=== PATIENT | female | born 1965 | race Caucasian/White ===

== ENCOUNTER 2018-08-26 13:09 | Inpatient (IN) ==
--- NOTE | 2018-08-25 20:28 | MH ---
cc: Bacilio Peoples MD DATE OF ADMISSION: 08/26/2018 HISTORY OF PRESENT ILLNESS: The patient is a 53-year-old white female, para 2-0-7-2 who was referred by her family doctor for evaluation. She was having treatment for a respiratory infection and a ventral hernia in 02/[address] scan on 03/13/2018 showed an enlarged uterus. She has had pelvic pain and pressure. Her previous bleeding was in 10/2017. Her vaginal ultrasound on 07/17/2018 showed uterus that measured 9.5 cm with a solid mass in the central region measuring 4.8 x 5.6 x 7.1 cm. Right ovary was normal, a small cyst; left could not be seen. There is no free fluid. MRI on 07/28/2018 confirmed these findings with a simple cyst on the right ovary. Hysterectomy was recommended. She presented for preop on 08/24/2018 and reported onset of menstrual type bleeding in the last few days. She is now admitted for surgery. PAST MEDICAL HISTORY: Previous surgeries, none. MEDICATIONS: Include: 1. Metformin. 2. Lipitor. 3. Albuterol. 4. Singulair. ALLERGIES: PENICILLIN. TRANSFUSIONS: None. SYSTEMIC ILLNESSES: Adult onset diabetes, diet controlled. OBSTETRIC HISTORY: Two vaginal deliveries. SOCIAL HISTORY: She is a homemaker, . Alcohol, tobacco and drugs are none. FAMILY HISTORY: Noncontributory. She is adopted. REVIEW OF SYSTEMS: Negative. PHYSICAL EXAMINATION: GENERAL: This is a well-nourished, well-developed white female. VITAL SIGNS: Stable. HEENT: Normal. CHEST: Clear. HEART: Regular rate. BREASTS: Symmetrical. ABDOMEN: Benign. PELVIC: Vagina is normal. Cervix normal. Uterus is enlarged, about 14-week size. Adnexa nonpalpable. IMPRESSION: As above, she is now admitted for D and C with frozen section with a planned laparoscopy, LASH BSO, possible TANYA/BSO. While in the office, the risk and benefits and complications were explained and accepted. Different types incision explained and accepted. Her followup chest x-ray shows a left lower lobe airspace consolidation, which appears to be unchanged from her chest x-ray and CT scans that were done on 02/26/2018 and 03/13/2018. MD TRAVON Carr/mook/ , 07:53 PM , 08:00 PM [email or web address]
[2018-08-26] MEDS ORDERED: Sodium Chlor 0.9% Inj 500 ML IV.CONT PRN (14:00)
[2018-08-26] MEDS ORDERED: Chlorhexidine Gluconate 2% 1 Pack (2 Cloths) TOPICAL SCH (14:15)
[2018-08-26] MEDS ORDERED: Metoprolol Tartrate 25 MG Tablet PO SCH (14:15)
[2018-08-26] MEDS ORDERED: Sugammadex Inj 200 MG/2 ML Vial IV.PUSH ONE (17:11)
[2018-08-26] MEDS ORDERED: Zolpidem Tartrate 5 MG Tablet PO PRN ×2 (18:59→19:13)
[2018-08-26] MEDS ORDERED: Naloxone Inj 0.4 MG/ML Vial IV.PUSH PRN (19:02)
[2018-08-26] MEDS ORDERED: Lidocaine PF 1% Inj 5 ML Vial ONE (19:03)
[2018-08-26] MEDS ORDERED: Bupivacaine Liposomal PF 1.3% Inj 20 ML Vial ONE (19:03)
[2018-08-26] MEDS ORDERED: Morphine Inj 4 MG/ML Vial ONE (19:09)
[2018-08-26] MEDS ORDERED: fentaNYL Citrate Inj 100 MCG/2 ML Ampul ONE (19:11)
--- NOTE | 2018-08-26 19:48 | XR ---
EXAM DATE: 08/26/2018 7:43 PM EST AGE/SEX: 53 years / Female INDICATIONS: Instrument count; total abdominal hysterectomy. Evaluate for possible retained surgical needle. CLINICAL DATA: This is the patient's initial encounter. Patient reports that signs and symptoms have been present for 1 day and indicates a pain score of Nonresponsive. MEDICAL/SURGICAL HISTORY: Non-responsive. Non-responsive. COMPARISON: No prior exams available for comparison. FINDINGS: Multiple views of the abdomen and pelvis were obtained and demonstrate an unremarkable bowel gas pat tern. A nasogastric tube is present with the tip in the proximal stomach. No metallic needle is ident ified. There is mild film artifact along the left side of the abdomen. The bony structures are intact . CONCLUSION: No metallic needle identified. Electronically signed by: Ag Oquendo MD 08/26/2018 7:46 PM EST
[2018-08-26] MEDS: Morphine Inj 30 MG/30 ML PCA.VIAL PCA PRN (19:59)
[2018-08-26] MEDS ORDERED: *morphine SULFATE 4 MG/ML PERIprocedure ONLY ONE (20:32)
[2018-08-26] MEDS ORDERED: *Meperidine Inj 25 MG/ML Vial PERIprocedural Use ONLY ONE (20:35)
[2018-08-26 20:43] LABS: Hematocrit 37.4 % (35.0-46.0); Hemoglobin 12.4 gm/dL (11.6-15.3); Mean Corpuscular HGB Conc 33.1 % (32.0-36.0); Mean Corpuscular Hemoglobin 28.6 pg (27.0-34.0); Mean Corpuscular Volume 86.4 fL (80.0-100.0); Mean Platelet Volume 7.4 fL (7.0-11.0); Platelet Count 204 th/mm3 (150-450); Red Blood Count 4.32 mil/mm3 (4.00-5.30); Red Cell Distribution Width 13.3 % (11.6-17.2); White Blood Count 11.1 th/mm3 (4.0-11.0)
[2018-08-26] MEDS: Ketorolac Inj 30 MG/ML (IVP) Vial IV.PUSH SCH (21:13)
[2018-08-26] MEDS: Docusate Sodium 100 MG Capsule PO SCH (23:02)
--- NOTE | 2018-08-27 00:08 | MP ---
cc: Bacilio Peoples MD DATE OF OPERATION: 08/26/2018 DATE OF SURGERY: 08/26/2018. PREOPERATIVE DIAGNOSES: 1. Pelvic pain. 2. Uterine fibroid. 3. Postmenopausal bleeding. POSTOPERATIVE DIAGNOSES: 1. Pelvic pain. 2. Uterine fibroid. 3. Postmenopausal bleeding. PROCEDURE PERFORMED: Dilatation and curettage, frozen section, laparoscopy, followed by laparotomy with a TANYA and BSO. ANESTHESIA: General, ET. SURGEON: Bacilio Peoples MD CARBURIZER: Avery Redmond ESTIMATED BLOOD LOSS: About 300 mL FLUIDS: One liter Crystalloid. OBJECTIVE FINDINGS: Following induction of adequate general endotracheal anesthesia, the patient was prepped and draped supine on the operating table in dorsal lithotomy position in usual sterile fashion, with the bladder being drained with Torres catheterization. Exam under anesthesia reveals about a 14 week size uterus. Heavy weighted speculum was placed in the posterior vagina. Anterior lip of the cervix was grasped with toothed tenaculum. Uterus sounded to 10 cm and dilated to #18 Hanks dilator. Endocervical curettings sent for permanent study, endometrium for frozen. Tenaculum site sutured with 3-0 Monocryl. Bung Remover's gloves were changed. The abdomen was opened through a 3 cm curving infraumbilical incision using the knife to cut down through the skin and the fascia. The fascia opened transversely. Peritoneum opened bluntly and the gel port inserted. With the laparoscope in place, the 5 port was placed in left lower quadrant and air sealed the right lower quadrant. It was about 14-week size, symmetrically enlarged, filling the pelvis. Tubes were normal. There were some adhesions of the right ovary to the posterior cul-de-sac. The frozen section returned benign. The Harmonic scalpel was used to take the left ovarian vessels, left mesosalpinx, left round ligament and left-sided bladder flap. On the right side, the right uretero-ovarian pedicle was taken in this fashion as was the right broad ligament. At this point, the adhesions between the posterior uterus and the ovary and the limited visibility made it clear that the laparotomy was needed. The scope was now withdrawn. The gel port removed, small ports removed and the abdomen was opened through a Pfannenstiel incision using knife to cut down through the skin to the fascia. The fascia opened transversely, stripped from the muscles, rectus muscle split in the midline and an elastic protractor placed. The bowels were packed off the field with moist laps and large Shavon clamps were placed in each cornua for traction. This allowed for further dissection of the bladder flap distally and Ebonie clamps were used to take the right uterine vessels x3, cut and ligated x2 same on the left. Straight Madelyn clamp was now used to take the cardinals and uterosacrals in succession clamping, cutting and ligating with 0-vicryl . When the level was just above the cervix, the anterior vaginal wall was pierced with a knife and the cervix excised at the cuff with the Bovie. Each corner of the vaginal cuff was then closed and suspended to the respective uterosacral ligament. A modified Newsome using 0 Vicryl and remainder of the cuff was closed with a running locking stitch of 0 Vicryl. The Harmonic scalpel was now used to take the right ovarian vessels and the right mesosalpinx and this was also sent for permanent study. Irrigation performed. No bleeding was evident. Ureters were inspected for good peristalsis on each side. The pelvis was packed with clean lap. There was no bleeding after 3 minutes and the operative sites were coated with Evicel. All retractors were removed. Lap counts were correct. Instrument counts were correct and the peritoneum was closed with running 2-0 Vicryl. The fascia from the umbilical incision was closed with a running stitch of #1 Vicryl running. The muscles were dusted with Megha and the fascia closed with a running stitch of #1 PDS corner midline and tied, subcutaneous irrigated and closed with a running 3-0 Vicryl, the skin with a running subcuticular 3-0 Monocryl, subcutaneous at the umbilical site was now closed with a running 3-0 Vicryl and the skin with a running 3-0 Monocryl subcuticular. Dermabond applied. Because of a questionable needle count problem, incorrect, x-ray will be obtained and checked to ensure there was no intra-abdominal needle. MD TRAVON Carr/tung , 07:18 PM , 07:28 PM RINKU
[2018-08-27] MEDS: Ketorolac Inj 30 MG/ML (IVP) Vial IV.PUSH SCH ×4 (02:42→21:18)
[2018-08-27 05:46] LABS: Baso % (Auto) 0.1 % (0.0-2.0); Eos % (Auto) 0.2 % (0.0-4.0); Hematocrit 34.6 % (35.0-46.0); Hemoglobin 11.9 gm/dL (11.6-15.3); Lymph # (Auto) 1.6 th/mm3 (1.0-4.8); Lymph % (Auto) 19.1 % (9.0-44.0); Mean Corpuscular HGB Conc 34.3 % (32.0-36.0); Mean Corpuscular Hemoglobin 29.5 pg (27.0-34.0); Mean Corpuscular Volume 86.2 fL (80.0-100.0); Mean Platelet Volume 7.3 fL (7.0-11.0); Mono # (Auto) 0.5 th/mm3 (0.0-0.9); Mono % (Auto) 5.8 % (0.0-8.0); Neut # (Auto) 6.2 th/mm3 (1.8-7.7); Neut % (Auto) 74.8 % (16.0-70.0); Platelet Count 180 th/mm3 (150-450); Red Blood Count 4.02 mil/mm3 (4.00-5.30); Red Cell Distribution Width 13.6 % (11.6-17.2); White Blood Count 8.3 th/mm3 (4.0-11.0)
[2018-08-27 06:12] LABS: Anion Gap 6 meq/L (5-15); Blood Urea Nitrogen 7 mg/dL (7-18); Calcium 7.8 mg/dL (8.5-10.1); Carbon Dioxide 26.2 meq/L (21.0-32.0); Chloride 105 meq/L (98-107); Glomerular Filtration Rate Greater Than 89 mL/min (>89); Glucose,Random 118 mg/dL (74-106); Potassium 3.8 meq/L (3.5-5.1); Sodium 137 meq/L (136-145)
[2018-08-27] MEDS: Docusate Sodium 100 MG Capsule PO SCH ×2 (08:46→21:17)
[2018-08-27] MEDS: Morphine Inj 30 MG/30 ML PCA.VIAL PCA PRN (15:53)
[2018-08-27] MEDS: Montelukast 10 MG Tablet PO SCH (18:34)
[2018-08-28] MEDS: Ketorolac Inj 30 MG/ML (IVP) Vial IV.PUSH SCH ×4 (03:33→23:08)
--- NOTE | 2018-08-28 08:03 | P.PNOB ---
Assessment and Plan - Postoperative POD # 2 s/p TANYA/BSO failed laparoscopic surgery doing well 1. advance diet 2. 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 encourage ambulationProcedures Operation Date: 08/26/18 16:27 Actual Procedures Side Surgeon p ATTEMPTED LAPAROSCOPIC ASSISTED SUPRACERVICAL HYSTERECTOMY Bacilio Peoples MD s TOTAL ABDOMINAL HYSTERECTOMY, BILATERAL SALPINGO OOPHERECTOMY, D&C WITH FROZEN SECTION Bilateral Bacilio Peoples MD Postoperative day: 2 (Doing well, progressing nicely) - Time Spent With Patient Total time spent is greater than 50% in coordination of care (as documented) at patient's floor/unit and/or counseling patient: Subjective Interval history: POD # 2 s/p TANYA/BSO , failed laparoscopic attempt..pt passing small amount of flatus, ambulating well, slight nausea, no vomitting, good pain control Physical Exam Vital signs: Temp Pulse Resp BP Pulse Ox 98.4 F 86 18 133/78 97 08/28/18 04:00 08/28/18 04:00 08/28/18 04:00 08/28/18 04:00 08/28/18 04:00 - Constitutional no acute distress, obese, cooperative - Routine Respiratory Exam Present: CTA bilaterally - Routine Abdominal Exam Present: soft, normoactive bowel sounds Comments: appropriately tender, slight bruising - Urinary Catheter Management Indwelling Urethral Catheter Cath placed during this visit: yes Urethral indwelling: No Insertion date: 08/26/18 Insertion time: 16:54 Results - Labs CBC & Chem 7: 08/27/18 04:20 08/27/18 04:20 Labs: Laboratory Results - last 24 hr 08/27/18 08:47 POC Glucose 112 H
[2018-08-28] MEDS: Docusate Sodium 100 MG Capsule PO SCH ×2 (08:52→21:40)
[2018-08-28] MEDS: Montelukast 10 MG Tablet PO SCH (17:19)
[2018-08-29] MEDS: Ketorolac Inj 30 MG/ML (IVP) Vial IV.PUSH SCH ×4 (04:29→22:03)
--- NOTE | 2018-08-29 08:49 | P.PNOB ---
Subjective Post op day: 3 Interval history: doing well tolerating pain with percocet. up to bathroom and ambulating Objective Vital Signs/I&O: Vital Signs 08/28/18 12:00 08/28/18 16:00 08/28/18 20:00 Temperature 98.0 F 98.0 F 98.2 F Pulse Rate 76 74 70 Respiratory Rate 18 18 18 Blood Pressure 123/98 H 150/78 H 149/79 H Pulse Oximetry 94 L 08/28/18 23:51 08/29/18 03:35 08/29/18 04:00 Temperature 98.3 F Pulse Rate 76 72 Respiratory Rate 18 16 18 Blood Pressure 142/77 H 154/81 H Pulse Oximetry 97 94 L 08/29/18 05:12 Temperature Pulse Rate Respiratory Rate 16 Blood Pressure Pulse Oximetry Intake & Output 08/28/18 08/29/18 08/29/18 18:59 06:59 18:59 Other: # Voids 1 1 Result Diagrams: 08/27/18 04:20 08/27/18 04:20 Objective Remarks: GENERAL: Well-nourished, well-developed patient. ABDOMEN/GI: Abdomen soft, non-tender, bowel sounds present. Incision: Clean, dry and intact. Fundus: Firm, non-tender at umbilicus. GENITOURINARY: Light to moderate bleeding. EXTREMITIES: No cyanosis or edema, non-tender, without signs of DVT. Medications and IVs: Active Medications Diphenhydramine HCl (Benadryl) 25 mg PO Q6H PRN PRN Reason: ITCHING Docusate Sodium (Colace) 100 mg PO BID [facility] Last Admin: 08/28/18 21:40 Dose: 100 mg Lactated Ringer's (Lr 1000 Ml Inj) 1,000 mls @ 125 mls/hr IV.CONT .Q8H [facility] Last Admin: 08/27/18 23:38 Dose: 125 mls/hr Ketorolac Tromethamine (Toradol Inj) 30 mg IV.PUSH Q6H [facility] Last Admin: 08/29/18 04:29 Dose: 30 mg Metformin HCl (Glucophage) 500 mg PO BID [facility] Last Admin: 08/28/18 21:40 Dose: 500 mg Montelukast Sodium (Singulair) 10 mg PO QPM [facility] Last Admin: 08/28/18 17:19 Dose: 10 mg Naloxone HCl (Narcan Inj) 0.4 mg IV.PUSH PRN PRN PRN Reason: Resp rate < 10 Ondansetron HCl (Zofran Inj) 8 mg IV.SIG Q8H PRN PRN Reason: NAUSEA OR VOMITING Last Admin: 08/29/18 04:29 Dose: 8 mg Oxycodone/Acetaminophen (Percocet 5/325 Mg) 1 tab PO Q4H PRN PRN Reason: PAIN SCALE 1-5 Last Admin: 08/29/18 06:00 Dose: 1 tab Oxycodone/Acetaminophen (Percocet 5/325 Mg) 2 tab PO Q4H PRN PRN Reason: PAIN SCALE 6-10 Promethazine HCl (Phenergan Inj) 25 mg IM Q6H PRN PRN Reason: NAUSEA OR VOMITING Last Admin: 08/27/18 08:54 Dose: 25 mg Sodium Chloride (Ns Flush) 2 ml IV.FLUSH BID [facility] Last Admin: 08/28/18 21:41 Dose: 2 ml Sodium Chloride (Ns Flush) 2 ml IV.FLUSH PRN PRN PRN Reason: FLUSH AFTER USING IV ACCESS Last Admin: 08/28/18 10:40 Dose: 2 ml Zolpidem Tartrate (Ambien) 5 mg PO HS PRN PRN Reason: INSOMNIA Assessment and Plan - Diagnosis (1) Vaginal bleeding Code(s): N93.9 - Abnormal uterine and vaginal bleeding, unspecified Status: Acute
[2018-08-29] MEDS: Docusate Sodium 100 MG Capsule PO SCH ×2 (09:56→21:06)
--- NOTE | 2018-08-29 11:26 | MD ---
cc: Bacilio Gonzalez MD,Bacilio Galloway MD DATE OF DISCHARGE: 08/29/2018 HOSPITAL COURSE: This is a 53-year-old patient of Dr. Bacilio Peoples. She was taken to the operating room where she had dilatation and curettage and then attempted laparoscopic hysterectomy, which was unsuccessful. The patient was opened and underwent a total abdominal hysterectomy and bilateral salpingo-oophorectomy. The patient remained in the hospital for 3 days postop, doing well. On the day of discharge, 08/29/2018, she was ambulating, passing gas, eating a regular diet, tolerating her pain with Percocet. She will be discharged home with a prescription for Percocet 24 tablets. She will resume all of her home medications. She will be on pelvic rest for 6 weeks. She will follow up with Dr. Peoples on 09/10/2018 as scheduled. She is in a stable condition. Regular diet. The patient will call for any difficulties or fever. MD STANISLAW Leroy/mook/ray , 08:57 AM , 09:03 AM
[2018-08-29] MEDS: Montelukast 10 MG Tablet PO SCH (17:12)
[2018-08-30] MEDS: Ketorolac Inj 30 MG/ML (IVP) Vial IV.PUSH SCH ×2 (04:09→09:49)
[2018-08-30 04:16] VITALS: PULSE 76; O2SAT 95
[2018-08-30 08:49] VITALS: BP 153/82; RESP 16; TEMP 97.9
[2018-08-30] MEDS: Docusate Sodium 100 MG Capsule PO SCH (09:48)
--- NOTE | 2018-08-30 11:12 | P.PNOB ---
Subjective Post op day: 1 Interval history: doing well dc home Objective Vital Signs/I&O: Vital Signs 08/29/18 13:57 08/29/18 20:31 08/30/18 00:24 Temperature 98.2 F 97.5 F L 97.7 F Pulse Rate 73 84 72 Respiratory Rate 20 16 18 Blood Pressure 131/84 175/97 H 151/85 H Pulse Oximetry 95 95 97 08/30/18 04:14 08/30/18 07:20 Temperature 97.6 F 97.9 F Pulse Rate 76 76 Respiratory Rate 18 16 Blood Pressure 146/89 H 153/82 H Pulse Oximetry 95 Result Diagrams: 08/27/18 04:20 08/27/18 04:20 Objective Remarks: GENERAL: Well-nourished, well-developed patient. ABDOMEN/GI: Abdomen soft, non-tender, bowel sounds present. Incision: Clean, dry and intact. Fundus: Firm, non-tender at umbilicus. GENITOURINARY: Light to moderate bleeding. EXTREMITIES: No cyanosis or edema, non-tender, without signs of DVT. Medications and IVs: Active Medications Atorvastatin Calcium (Lipitor) 10 mg PO DAILY [facility] Last Admin: 08/30/18 09:49 Dose: 10 mg Diphenhydramine HCl (Benadryl) 25 mg PO Q6H PRN PRN Reason: ITCHING Docusate Sodium (Colace) 100 mg PO BID [facility] Last Admin: 08/30/18 09:48 Dose: 100 mg Lactated Ringer's (Lr 1000 Ml Inj) 1,000 mls @ 125 mls/hr IV.CONT .Q8H [facility] Last Admin: 08/27/18 23:38 Dose: 125 mls/hr Ketorolac Tromethamine (Toradol Inj) 30 mg IV.PUSH Q6H [facility] Last Admin: 08/30/18 09:49 Dose: 30 mg Metformin HCl (Glucophage) 500 mg PO BID [facility] Last Admin: 08/30/18 09:48 Dose: 500 mg Montelukast Sodium (Singulair) 10 mg PO QPM [facility] Last Admin: 08/29/18 17:12 Dose: 10 mg Naloxone HCl (Narcan Inj) 0.4 mg IV.PUSH PRN PRN PRN Reason: Resp rate < 10 Ondansetron HCl (Zofran Inj) 8 mg IV.SIG Q8H PRN PRN Reason: NAUSEA OR VOMITING Last Admin: 08/29/18 04:29 Dose: 8 mg Oxycodone/Acetaminophen (Percocet 5/325 Mg) 1 tab PO Q4H PRN PRN Reason: PAIN SCALE 1-5 Last Admin: 08/29/18 14:41 Dose: 1 tab Oxycodone/Acetaminophen (Percocet 5/325 Mg) 2 tab PO Q4H PRN PRN Reason: PAIN SCALE 6-10 Promethazine HCl (Phenergan Inj) 25 mg IM Q6H PRN PRN Reason: NAUSEA OR VOMITING Last Admin: 08/27/18 08:54 Dose: 25 mg Sodium Chloride (Ns Flush) 2 ml IV.FLUSH BID [facility] Last Admin: 08/29/18 21:06 Dose: 2 ml Sodium Chloride (Ns Flush) 2 ml IV.FLUSH PRN PRN PRN Reason: FLUSH AFTER USING IV ACCESS Last Admin: 08/30/18 04:09 Dose: 2 ml Zolpidem Tartrate (Ambien) 5 mg PO HS PRN PRN Reason: INSOMNIA Assessment and Plan - Diagnosis (1) Vaginal bleeding Code(s): N93.9 - Abnormal uterine and vaginal bleeding, unspecified Status: Acute (2) S/P TANYA-BSO Code(s): Z90.710 - Acquired absence of both cervix and uterus; Z90.722 - Acquired absence of ovaries, bilateral; Z90.79 - Acquired absence of other genital organ(s) Status: Acute
== END 2018-08-30 11:44 | disposition home or self-care (01) ==
LOC: HSDC 13:09 → HSDI 19:38 → H1EA 20:53
PROVIDERS: ADMIT Obstetrics & Gynecology; ATTEND Obstetrics & Gynecology
PROC: LAPLASH (ICD-10-PCS; 2018-08-26 16:27)